=== PATIENT | female | born 1935 | race Caucasian/White ===

== ENCOUNTER → 2020-07-31 | Outpatient (CLI) | payer MEDICARE | LOC: OD 11:09 | PROVIDERS: ATTEND Family Medicine | DX: M54.6 Pain in thoracic spine (principal) ==

== ENCOUNTER → 2020-08-07 | Outpatient (CLI) | payer MEDICARE ==
--- NOTE | 2020-08-07 14:53 | RADIOLOGY REPORT (SQ) ---
EXAM DESCRIPTION: LUMBAR SPINE COMPLETE IMAGES COMPLETED DATE/TIME: 08/07/2020 1:29 pm REASON FOR STUDY: PAIN IN THORACIC SPINE M54.6 PAIN IN THORACIC SPINE COMPARISON: None. NUMBER OF VIEWS: Five views including obliques. TECHNIQUE: AP, lateral, oblique, and sacral radiographic images acquired of the lumbar spine. LIMITATIONS: None. FINDINGS: MINERALIZATION: Normal. SEGMENTATION: Normal. No transitional anatomy. ALIGNMENT: Scoliosis. Grade 1 anterolisthesis of L4 on L5. VERTEBRAE: Maintained height. No fracture or worrisome bone lesion. DISCS: All the lumbar disc spaces are narrowed to some degree. Marginal osteophytes are present cecy ral levels. POSTERIOR ELEMENTS: Hypertrophic facet changes are present at multiple levels. HARDWARE: None in the spine. PARASPINAL SOFT TISSUES: Normal. PELVIS: Intact as visualized. No fractures or worrisome bone lesions. SI joints intact. OTHER: No other significant finding. IMPRESSION: Scoliosis. Grade 1 anterolisthesis of L4 on L5. Multilevel degenerative disc disease, spondylosis, and facet arthropathy. TECHNICAL DOCUMENTATION: JOB ID: [id number] 2010 [employer]- All Rights Reserved Reading location - IP/workstation name: [email or web address]
--- NOTE | 2020-08-07 14:54 | RADIOLOGY REPORT (SQ) ---
EXAM DESCRIPTION: T SPINE AP/LAT IMAGES COMPLETED DATE/TIME: 08/07/2020 1:29 pm REASON FOR STUDY: PAIN IN THORACIC SPINE M54.6 PAIN IN THORACIC SPINE COMPARISON: None. NUMBER OF VIEWS: Two views. TECHNIQUE: AP and lateral radiographic images acquired of the thoracic spine. LIMITATIONS: None. FINDINGS: MINERALIZATION: Normal. ALIGNMENT: Mild scoliosis. Increased dorsal kyphosis. VERTEBRAE: No significant thoracic compression changes are seen. DISCS: No significant loss of height or significant narrowing. No large osteophytes. HARDWARE: None in the spine. MEDIASTINUM AND SOFT TISSUES: Normal heart size and aortic contour. No soft tissue abnormality. VISUALIZED LUNG BONNER: Clear. OTHER: No other significant finding. IMPRESSION: Scoliosis. Increased dorsal kyphosis. No acute finding. TECHNICAL DOCUMENTATION: JOB ID: [id number] 2010 [employer]- All Rights Reserved Reading location - IP/workstation name: [email or web address]
== END ==
LOC: OD 13:14
PROVIDERS: ATTEND Family Medicine
DX: M51.36 Other intervertebral disc degeneration, lumbar region (principal); M41.85 Other forms of scoliosis, thoracolumbar region; M47.816 Spondylosis without myelopathy or radiculopathy, lumbar region
CPT/HCPCS: 72070; 72110

== ENCOUNTER 2020-08-12 16:38 | Emergency (ER) | payer MEDICARE ==
--- NOTE | 2020-08-12 17:04 | ER Document Report ---
ED Medical Screen (RME) - General Chief Complaint: Fall Injury Stated Complaint: BACK PAIN Time Seen by Provider: 08/12/20 16:52 Primary Care Provider: YENNY RICARDO MD [Primary Care Provider] - Follow up as needed - [facility] Notes: 08/12/20 16:58 84-year-old female presents to the emergency room today after she fell out of a bathtub 2 days ago. Patient states she fell and hit her lower back her mid back and left side of her ribs. Denies any head trauma or change in level consciousness. Patient is not on any anticoagulant therapy. Patient has been taking controlled pain medication to help with her pain. On palpation she reports her pain is 5 out of 5. Denies any issues with bowel or bladder dysfunction, last bowel movement was yesterday, states she is peeing without any hematuria or dysuria. Denies any shortness of breath, chest pain, nausea vomiting diarrhea lightheadedness dizziness. Patient recently just had thoracic and lumbar spine x-rays done August 07 which showed scoliosis, before she fell on 10 of August I have greeted and performed a rapid initial assessment of this patient. A comprehensive ED assessment and evaluation of the patient, analysis of test results and completion of the medical decision making process will be conducted by additional ED providers. PHYSICAL EXAMINATION: GENERAL: Well-appearing, well-nourished and in no acute distress. HEAD: Atraumatic, normocephalic. EYES: Pupils equal round extraocular movements intact, conjunctiva are normal. NECK: Normal range of motion CV: s1, s2 regular LUNGS: No respiratory distress Musculoskeletal: Normal range of motion. Tenderness to left ribs between the eighth and 12th on the posterior aspect, tenderness to upper thoracic back on palpation. NEUROLOGICAL: Normal speech, normal gait. SKIN: Warm, Dry, normal turgor, no rashes or lesions noted. No ecchymosis seen on ribs or posterior back - Related Data Allergies/Adverse Reactions: Sulfa (Sulfonamide Antibiotics) Allergy (Verified 08/12/20 16:59) Penicillins Adverse Reaction (Verified 08/12/20 16:58) Physical Exam - Vital signs Vitals: Temp Pulse Resp BP Pulse Ox 98.2 F 90 16 107/73 100 08/12/20 16:49 08/12/20 16:49 08/12/20 16:49 08/12/20 16:49 08/12/20 16:49 Course - Vital Signs Vital signs: Temp Pulse Resp BP Pulse Ox 98.2 F 90 16 107/73 100 08/12/20 16:49 08/12/20 16:49 08/12/20 16:49 08/12/20 16:49 08/12/20 16:49 Doctor's Discharge - Discharge Referrals: YENNY RICARDO MD [Primary Care Provider] - Follow up as needed
--- NOTE | 2020-08-12 17:31 | RADIOLOGY REPORT (SQ) ---
EXAM DESCRIPTION: CHEST 2 VIEWS IMAGES COMPLETED DATE/TIME: 08/12/2020 5:22 pm REASON FOR STUDY: fell out of bathtub backwards, hit L lower/midback COMPARISON: None. EXAM PARAMETERS: NUMBER OF VIEWS: two views TECHNIQUE: Digital Frontal and Lateral radiographic views of the chest acquired. RADIATION DOSE: NA LIMITATIONS: none FINDINGS: LUNGS AND PLEURA: Small right pleural effusion and atelectatic changes or scar in the rig ht mid- lower lung zones. Slight scarring at the left lung base. No pneumothorax. MEDIASTINUM AND HILAR STRUCTURES: No masses or contour abnormalities. HEART AND VASCULAR STRUCTURES: Heart normal size. No evidence for failure. BONES: Degenerative changes involving the thoracic and upper lumbar spine. No acute findings. HARDWARE: None in the chest. OTHER: No other significant finding. IMPRESSION: 1. Small right pleural effusion atelectatic changes in the right lower lung zone. TECHNICAL DOCUMENTATION: JOB ID: [id number] 2010 [employer]- All Rights Reserved Reading location - IP/workstation name: [email or web address]
--- NOTE | 2020-08-12 18:30 | RADIOLOGY REPORT (SQ) ---
EXAM DESCRIPTION: CT LUMBAR SPINE WITHOUT IMAGES COMPLETED DATE/TIME: 08/12/2020 4:31 pm REASON FOR STUDY: fell out of bathtub backwards, left rib pain COMPARISON: Lumbar spine radiograph, 08/07/2020. Chest radiograph, 08/12/2020. TECHNIQUE: Axial images acquired through the lumbar spine without intravenous contrast. Images revi ewed with lung, soft tissue and bone windows. Reconstructed coronal and sagittal MPR images reviewed . All images stored on PACS. All CT scanners at this facility use dose modulation, iterative reconstruction, and/or weight based d osing when appropriate to reduce radiation dose to as low as reasonably achievable (ALARA). [facility]: Dose Right [facility]: CareDose [facility]: Dose Right [facility]: Teradose 4D [facility]: [employer] RADIATION DOSE: mGy. LIMITATIONS: Motion obscures some detail. FINDINGS: SEGMENTATION: Normal. No transitional anatomy. ALIGNMENT: There was retrolisthesis L1 on L2 about 4 mm. Retrolisthesis L2 on L3 about 2 mm. Nader listhesis L3 on L4 about 3 mm. Retrolisthesis L5 on S1 about 2 mm. [place] left scoliotic curvature ce ntered at L1-L2. VERTEBRAL BODIES: There is no acute fracture or cortical disruption. Endplate sclerosis and marginal osteophytes at multiple levels. Posterior projecting osteophytes at L1-L2, L2-L3, and L5-S1. DISCS: Multilevel degenerative disc disease with loss of intervertebral disc heights. See levels bel ow: At L1-L2: There is severe loss of intervertebral disc height with vacuum disc phenomenon. Posterior projecting marginal osteophytes. Small broad-based posterior disc bulge. No significant spinal can al stenosis. Bilateral uncovertebral spurring and facet arthropathy contributes to severe bilateral neural foraminal stenosis. At L2-L3: There is severe degenerative disc disease with loss of intervertebral disc height and vacuu m disc phenomenon. Retrolisthesis with posterior disc osteophyte complex contributes to mild acquire d spinal canal stenosis with spinal canal measuring about 9 mm at this level. Bilateral facet arthro juwan, uncovertebral spurring and disc osteophyte complexes contribute to severe bilateral neural for aminal stenosis. At L3-L4: There is moderate loss of intervertebral disc height. Broad-based disc bulge. Disc materi al extends to the right and left neural foramen. There is acquired spinal canal stenosis secondary t o bulging disc material with spinal canal measuring about 8 mm at this level. Bilateral facet arthro juwan and uncovertebral spurring with disc material extending to the neural foramen contributes to se olga right and moderate left neural foraminal stenosis. At L4-L5: There is moderate loss of intervertebral disc height. Moderate broad-based posterior disc bulge. Facet arthropathy and ligamentum hypertrophy contribute to spinal canal stenosis with spinal canal measuring about 7 mm at this level. Bilateral facet arthropathy and disc material contribute t o moderate to severe bilateral neural foraminal stenosis. At L5-S1: There is severe degenerative disc disease with loss of intervertebral disc height and vacuu m disc phenomenon. Asymmetric left-sided disc bulge with disc material extending to the left neural foramen. Bilateral facet arthropathy and uncovertebral spurring. There is severe left and moderate right neural foraminal stenosis. No significant spinal canal stenosis. PEDICLES, TRANSVERSE PROCESSES: Intact. No pars defects. FACETS, POSTERIOR ELEMENTS: Facet arthropathy and uncovertebral spurring at multiple levels, most p rominent at L4-L5 and L5-S1. HARDWARE: None in the spine. VISUALIZED RIBS: No fractures. SOFT TISSUES: No significant or acute finding in adjacent soft tissues. OTHER: No other significant finding. IMPRESSION: No acute fracture or dislocation of the lumbar spine. Multilevel degenerative disc dise ase, spondylosis, and facet arthropathy as described above. Of note, there is mild acquired spinal c anal stenosis secondary to disc bulges and facet arthropathy most prominent at L4-L5, also present at L2-L3 and L3-L4 levels. TECHNICAL DOCUMENTATION: JOB ID: [id number] Quality ID # [id number]: Final reports with documentation of one or more dose reduction techniques (e.g., Au tomated exposure control, adjustment of the mA and/or kV according to patient size, use of iterative reconstruction technique) 2010 [employer]- All Rights Reserved Reading location - IP/workstation name: [email or web address]
--- NOTE | 2020-08-12 18:43 | RADIOLOGY REPORT (SQ) ---
EXAM DESCRIPTION: CT THORACIC SPINE WITHOUT IMAGES COMPLETED DATE/TIME: 08/12/2020 4:31 pm REASON FOR STUDY: fell out of bathtub backwards, hit L lower/midback COMPARISON: Chest radiograph same date TECHNIQUE: Axial images acquired through the thoracic spine without intravenous contrast. Images re viewed with lung, soft tissue and bone windows. Reconstructed coronal and sagittal MPR images review ed. Images stored on PACS. All CT scanners at this facility use dose modulation, iterative reconstruction, and/or weight based d osing when appropriate to reduce radiation dose to as low as reasonably achievable (ALARA). [facility]: Dose Right [facility]: CareDose [facility]: Dose Right [facility]: Teradose 4D [facility]: [employer] RADIATION DOSE: CT Rad equipment meets quality standard of care and radiation dose reduction techniq ues were employed. CTDIvol: 17.1 mGy. DLP: 547 mGy-cm. mGy. LIMITATIONS: None. FINDINGS: VISUALIZED LUNGS: There is a small right pleural effusion with compressive atelectasis at the right lung base. Respiratory motion obscures detail. Atelectasis at the left lung base. Tiny l eft medial pneumothorax. SOFT TISSUES: No soft tissue swelling. No masses. VERTEBRAL BODIES: No acute fracture or loss of vertebral body height. Small marginal osteophytes and endplate sclerosis most prominent at T6-T7 and T11-T12. DISCS: Degenerative disc disease with loss of intervertebral disc height at multiple levels. Vacuum disc phenomenon at T11-T12 with asymmetric right side disc bulge extending to the right neural forame n. There is moderate right neural foraminal stenosis at T11-T12. Bilateral facet arthropathy and un covertebral spurring at T12-L1 with chronic degenerative disc disease contributing to severe bilatera l neural foraminal stenosis at this level. ALIGNMENT: Normal. TRANSVERSE PROCESSES, POSTERIOR ELEMENTS: No fractures. No dislocation. No acute findings. HARDWARE: None in the spine. VISUALIZED RIBS: Acute fractures of the right posterior 11th rib, medial portion of the 11th rib, com minuted fracture posterior right 10th rib. Remaining posterior ribs that are visualized demonstrate no fractures. OTHER: No other significant finding. IMPRESSION: 1. No acute vertebral body fracture in the thoracic spine. 2. Multilevel degenerative disc disease and facet arthropathy as described. 3. Acute comminuted fracture posterior right 10th rib and minimally displaced fractures posterior med ial 11th rib. There is a tiny medial right hydropneumothorax. Further evaluation with CT of the [address] should be considered. COMMENT: Findings were discussed with Brandon MENDEZ on 08/12/2020 at 1829 hours Eastern. TECHNICAL DOCUMENTATION: JOB ID: [id number] Quality ID # [id number]: Final reports with documentation of one or more dose reduction techniques (e.g., Au tomated exposure control, adjustment of the mA and/or kV according to patient size, use of iterative reconstruction technique) 2010 [employer]- All Rights Reserved Reading location - IP/workstation name: [email or web address]
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
[2020-08-12 19:43] LABS: PROTHROMBIN TIME 13.4 SEC (11.4-15.4)
[2020-08-12 19:45] LABS: ABSOLUTE EOSINOPHILS # (AUTO) 0.2 10^3/uL (0.0-0.6); ABSOLUTE LYMPHOCYTES (AUTO) 0.8 10^3/uL (0.5-4.7); ABSOLUTE MONOCYTES (AUTO) 0.7 10^3/uL (0.1-1.4); ABSOLUTE NEUT (AUTO) 5.7 10^3/uL (1.7-8.2); BASOPHILS % (AUTO) 0.7 % (0-2); EOSINOPHILS % (AUTO) 2.4 % (0-6); HEMATOCRIT 27.5 % (36.0-47.0); HEMOGLOBIN 9.2 g/dL (12.0-15.5); LYMPHOCYTES % (AUTO) 10.3 % (13-45); MEAN CORPUSCULAR HEMOGLOBIN 23.6 pg (27.0-33.4); MEAN CORPUSCULAR HGB CONC 33.6 g/dL (32.0-36.0); MEAN CORPUSCULAR VOLUME 70 fl (80-97); MONOCYTES % (AUTO) 9.2 % (3-13); PLATELET COUNT 429 10^3/uL (150-450); RED BLOOD COUNT 3.92 10^6/uL (3.72-5.28); SEGMENTED NEUTROPHILS % (AUTO) 77.4 % (42-78); TOTAL CELLS COUNTED % (AUTO) 100 %; WHITE BLOOD COUNT 7.4 10^3/uL (4.0-10.5)
[2020-08-12 19:58] LABS: ALKALINE PHOSPHATASE 122 U/L (38-126); ANION GAP 10 (5-19); ASPARTATE AMINO TRANSFERASE 22 U/L (14-36); BILIRUBIN,DIRECT 0.2 mg/dL (0.0-0.4); BILIRUBIN,TOTAL 0.6 mg/dL (0.2-1.3); BLOOD UREA NITROGEN 26 mg/dL (7-20); CALCIUM 10.6 mg/dL (8.4-10.2); CARBON DIOXIDE 23 mmol/L (22-30); CHLORIDE 109 mmol/L (98-107); GLUCOSE 91 mg/dL (75-110); POTASSIUM 4.4 mmol/L (3.6-5.0); TOTAL PROTEIN 7.3 g/dL (6.3-8.2)
[2020-08-12] MEDS ORDERED: ONDANSETRON ODT 4 MG TAB (6 TAB/ER DISP) PO PRN (20:56)
[2020-08-12] MEDS ORDERED: HYDROCODONE/ACETAMINOPHEN 5-325 MG (6 TAB/ER DISP) PO PRN (20:57)
--- NOTE | 2020-08-12 21:06 | RADIOLOGY REPORT (SQ) ---
EXAM DESCRIPTION: CT HEAD WITHOUT IV CONTRAST COMPLETED DATE/TME: 08/12/2020 18:58 CLINICAL HISTORY: 84 years, Female, fall COMPARISON: None. TECHNIQUE: Axial images without IV contrast. Sagittal coronal reconstruction. This exam was performed according to our departmental dose-optimization program, which includes automated exposure control, adjustment of the mA and/or kV according to patient size and/or use of iterative reconstruction technique.. Images stored on PACS. FINDINGS: Moderate central and cortical atrophy. Left lateral ventricle larger compared to the right with associated old left white matter infarction. No obvious acute intra-axial or extra-axial abnormality. There is a lytic lesion in the right posterior frontal bone. Measures approximately 2 cm in length and 1 cm in width. Relative sharp transition zone between the abnormal lesion in the normal adjacent bone. Very subtle extra-axial/epidural soft tissue component. Series 2 image 26. IMPRESSION: 1. Lytic lesion in the right posterior frontal bone. Does not demonstrate a highly aggressive behavior. Very subtle epidural soft tissue component. 2. No acute intra-axial abnormalities. Age-related atrophy. 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
--- NOTE | 2020-08-12 21:12 | RADIOLOGY REPORT (SQ) ---
EXAM DESCRIPTION: CT CERVICAL SPINE WITHOUT IV CONTRAST COMPLETED DATE/TME: 08/12/2020 18:58 CLINICAL HISTORY: 84 years, Female, fall COMPARISON: None. TECHNIQUE: Axial images without IV contrast. Sagittal coronal reconstruction. Images stored on PACS. All CT scanners at this facility use dose modulation, iterative reconstruction, and/or weight based dosing when appropriate to reduce radiation dose to as low as reasonably achievable (ALARA). FINDINGS: Increased lordosis of the cervical spine increased kyphosis of the upper thoracic spine. No obvious acute fracture dislocation. Minimal anterior subluxation at C6-7 is more likely chronic. Multilevel non prominent posterior discopathy. No significant central stenosis. Multiple levels of advanced facet disease. Multiple levels of foraminal stenosis. No acute prevertebral soft tissue swelling. Enlarged right thyroid lobe with suspected nodule inferior aspect. Measures 3.5 x 2.6 x 2.6 cm. Limited images of the upper chest demonstrate a right pneumothorax. IMPRESSION: 1. CT of the cervical spine without acute findings. Diffuse facet disease and foraminal stenosis. 2. Right inferior thyroid nodule.3.5 cm incidental thyroid nodule. Recommend thyroid US. Reference: J Am Marie Radiol. 2015 b;12(2): 143-50 3. Right upper chest pneumothorax. See separate CT chest dictation. 4. 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
--- NOTE | 2020-08-12 21:36 | RADIOLOGY REPORT (SQ) ---
EXAM DESCRIPTION: CT ABDOMEN PELVIS WITH IV CONTRAST COMPLETED DATE/TME: 08/12/2020 18:43 CLINICAL HISTORY: 84 years, Female, trauma COMPARISON: None. TECHNIQUE: Axial images with 100 mL of Omnipaque 350. Sagittal coronal reconstruction. Images stored on PACS. All CT scanners at this facility use dose modulation, iterative reconstruction, and/or weight based dosing when appropriate to reduce radiation dose to as low as reasonably achievable (ALARA). FINDINGS: Mild right pneumothorax. Acute right 10th rib fracture with deformity. More subtle probably also acute right posterior 11th rib fracture. Liver demonstrates an 18 mm hypodensity in the inferior right lobe. It demonstrates a peripheral area of higher density possibly enhancement on the early images. The enhancement significantly increases on the delayed images and this could be a hemangioma.. Additional low density lesions in the lateral segment of the left lobe of the liver series 3 images 91 and 89 which may represent true lesions or fatty deposits. Suspected small gallstones. No obvious acute biliary abnormality. Spleen, pancreas,, adrenal glands, and para-aortic regions unremarkable. Moderately atherosclerotic aorta without dilatation. Mild narrowing distally. Atherosclerotic branches of the abdominal aorta. Kidneys are unremarkable. Significantly dilated cecum and right lower quadrant. Moderately dilated rest of the colon with increased stool. Associated diverticulosis. Mild secondary dilatation of small bowel loops. No suspicious peritoneal abnormalities. Diffuse degenerative changes in the lumbar spine. No obvious acute fracture dislocation. CT of the pelvis demonstrates advanced sigmoid diverticulosis without acute diverticulitis. Uterus not definitely identified. Multiple loops of small bowel. No definite mass or hematoma in the pelvis. Bony pelvis is unremarkable. Atherosclerotic disease. IMPRESSION: 1. Right lower posterior rib fractures. Right pneumothorax. 2. Right inferior hepatic lesion possibly hemangioma. Consider confirmation with ultrasound. Additional two hypodensities in the medial segment of the left lobe of the liver are more likely focal fatty changes. Can also be evaluated with ultrasound. 3. No obvious acute findings in abdomen pelvis related to trauma. 4. Mildly dilated small bowel loops. Significantly dilated cecum. [id number] dilated rest of colon with diffuse diverticulosis. 5. Atherosclerotic disease. Degenerative changes in the spine. Suspected small gallstones without acute biliary abnormality.
--- NOTE | 2020-08-12 21:57 | RADIOLOGY REPORT (SQ) ---
EXAM DESCRIPTION: CT CHEST WITH IV CONTRAST COMPLETED DATE/TME: 08/12/2020 18:42 CLINICAL HISTORY: 84 years, Female, trauma, right rib fx, hydro/pneumo COMPARISON: None. TECHNIQUE: Axial images with 100 mL of Omnipaque 350. Sagittal coronal reconstruction. Images stored on PACS. All CT scanners at this facility use dose modulation, iterative reconstruction, and/or weight based dosing when appropriate to reduce radiation dose to as low as reasonably achievable (ALARA). FINDINGS: Unremarkable Central pulmonary arteries. Aorta without dissection or dilatation. Calcifications of the aortic annulus. No suspicious mediastinal adenopathy or hematoma. [id number] cardiomegaly. Moderate elevation of the right hemidiaphragm. Tiny right pleural effusion. [id number] right lower lobe atelectasis. Small less than 10% right pneumothorax. Very tiny amount of air noted lateral to the liver. This is more likely part of the pneumothorax and less likely a tiny pneumoperitoneum. Mild atelectasis left lower lobe. Left hemithorax is otherwise unremarkable. Mildly comminuted fracture of the right posterior 10th rib. Minimally displaced fracture of the right posterior 11th rib. IMPRESSION: 1. Significant elevation of the right hemidiaphragm. No overt findings of right diaphragmatic tear although diagnosis on the right is sometimes difficult. There is no associated intra-abdominal trauma to support the finding of a diaphragmatic tear. 2. There is evidence for small right pneumothorax right pleural effusion. Parenchymal abnormalities in the right lower lung. Acute posterior displaced fractures of T10 and T11. There is tiny amount of air lateral to the liver which is probably also part of the pneumothorax and pneumoperitoneum.
[2020-08-12 22:02] VITALS: BP 118/70
--- NOTE | 2020-08-13 07:47 | EKG REPORT ---
SEVERITY:- ABNORMAL ECG - SINUS RHYTHM MULTIPLE ATRIAL PREMATURE COMPLEXES LEFT VENTRICULAR HYPERTROPHY BORDERLINE T ABNORMALITIES, INFERIOR LEADS : Confirmed by: Ronnie Catherine MD 13-Aug-2020 07:46:43
== END 2020-08-12 22:10 | disposition home or self-care (01) ==
LOC: ER 16:38
DX: S22.42XA Multiple fractures of ribs, left side, initial encounter for closed fracture (principal); S27.0XXA Traumatic pneumothorax, initial encounter; S09.90XA Unspecified injury of head, initial encounter; D64.9 Anemia, unspecified; M54.9 Dorsalgia, unspecified; R07.81 Pleurodynia; R07.9 Chest pain, unspecified; W18.2XXA Fall in (into) shower or empty bathtub, initial encounter; Z88.2 Allergy status to sulfonamides; Z88.0 Allergy status to penicillin
CPT/HCPCS: 93005; 99285; 36415; 85025; 85610; 80053; 71046; 70450; 71260; 72125; 72128; 72131; 74177; 93010; A9270 ×2